=== PATIENT | female | born 1960 | race Caucasian/White ===

== ENCOUNTER 2018-04-21 08:02 | Emergency (ER) | payer BC ==
--- NOTE | 2018-04-21 08:40 | UC ---
Neck Pain HPI - HPI Summary HPI Summary: ONSET YESTERDAY OF LEFT ARM ACHING AND FINGER TINGLING. WORSE WITH CERTAIN POSITIONS AND NECK MOVEMENTS. HAS BEEN DOING A LOT OF LIFTING AND MOVING RECENTLY. NO DISCRETE TRAUMA THAT SHE REMEMBERS. HAS HAD SIMILAR SYMPTOMS INTERMITTENTLY IN THE PAST THAT RESOLVE WITH REST AND IBUPROFEN WHICH IS NOT WORKING SO MUCH THIS TIME. - History of Current Complaint Chief Complaint: UCUpperExtremity Stated Complaint: L ARM NUMBNESS Time Seen by Provider: 04/21/18 08:12 Hx Obtained From: Patient Onset/Duration Of Injury/Symptoms: Days - 1 DAY Mechanism Of Injury: No Known Trauma Onset/Duration: Sudden Onset, Still Present Severity: Moderate Pain Intensity: 6 Pain Scale Used: 0-10 Numeric Location: Discrete At: - LEFT NECK, SHOULDER, ARM Aggravating Factors: Movement Alleviating Factors: Position Associated Signs & Symptoms: Positive: Paresthesia - Allergies/Home Medications Allergies/Adverse Reactions: Allergies Allergy/AdvReac Type Severity Reaction Status Date / Time No Known Allergies Allergy Verified 04/21/18 08:07 Home Medications: Home Medications Ibuprofen TAB* [Motrin TAB* 400 MG] 400 mg PO Q6H PRN 04/21/18 [History Confirmed 04/21/18] PMH/Surg Hx/FS Hx/Imm Hx Previously Healthy: Yes - Surgical History Surgical History: None - Family History Known Family History: Positive: Hypertension - Social History Alcohol Use: Weekly Alcohol Amount: a couple Substance Use Type: None Smoking Status (MU): Never Smoked Tobacco Have You Smoked in the Last Year: No Review Of Systems Constitutional: Positive: Negative Skin: Positive: Negative Respiratory: Positive: Negative Cardiovascular: Positive: Negative Gastrointestinal: Positive: Negative Musculoskeletal: Positive: Arthralgia, Decreased ROM Neurological: Positive: Paresthesia All Other Systems Reviewed And Are Negative: Yes Physical Exam Triage Information Reviewed: Yes Appearance: Well-Appearing, Well-Nourished, Pain Distress - MILD, Other: - PT SITTING WITH LEFT ARM OVER HEAD Vital Signs: Initial Vital Signs Temp 97.5 F 04/21/18 08:08 Pulse 67 04/21/18 08:08 Resp 16 04/21/18 08:08 BP 154/98 04/21/18 08:08 Pulse Ox 98 04/21/18 08:08 Vital Signs Reviewed: Yes Eyes: Positive: Conjunctiva Clear ENT: Positive: Hearing grossly normal Neck: Positive: Supple Respiratory: Positive: No respiratory distress, No accessory muscle use Cardiovascular: Positive: Pulses Normal Abdomen Description: Positive: Soft Musculoskeletal: Positive: No Edema, ROM Limited @ - NECK, Other: - POSITIVE SHOULDER ABDUCTION RELIEF TEST. EQUIVOCAL SPURLING TEST. NOT TENDER OVER SPINE OR SURROUNDING MUSCULATURE. Neurological: Positive: Alert, Other: - NEG TINEL, NEG PHALEN Psychological: Positive: Age Appropriate Behavior Skin: Negative: rashes Diagnostics - EKG Cardiac Rate: Bradycardia - 51 BPM Cardiac Rhythm: Sinus: Normal Ectopy: None ST Segment: Normal Neck Pain Course/Dx - Course Course Of Treatment: ON THE WAY TO X-RAY PATIENT SUDDENLY BECAME PALE AND CLAMMY AND HAD A PRESYNCOPAL EVENT. CLINICALLY SOUNDS LIKE A VASOVAGAL REACTION. EKG WAS OBTAINED AND PATIENT WAS FOUND TO BE BRADYCARDIC IN THE 50S. OVER 30 MINUTES LATER PATIENT WAS STILL BRADYCARDIC IN THE 50S AND PALE. OVERALL NOT FEELING WELL WITH PERSISTENT LEFT ARM DISCOMFORT. HAS NOT EATEN OR HAD MUCH TO DRINK YET TODAY. WILL SEND TO [facility] ED BY AMBULANCE FOR FURTHER EVALUATION AND MANAGEMENT. - Differential Dx/Diagnosis Provider Diagnoses: 1. CERVICAL RADICULOPATHY. 2. SYNCOPE - Physician Notification/Consults Discussed Patient Care With: Jesus Alberto March - TO [facility] ED BY AMBULANCE Time Discussed With Above Provider: 09:30 Instructed by Provider To: MD Will See In ED Discharge - Sign-Out/Discharge Documenting (check all that apply): Patient Departure All imaging exams completed and their final reports reviewed: No Studies - Discharge Plan Condition: Stable Disposition: TRANS HIGHER LVL OF CARE FAC Patient Education Materials: Syncope (ED), Cervical Radiculopathy (ED) Referrals: [facility] [Outside] Rosas Cedillo MD [Medical Doctor] - Additional Instructions: I SUSPECT YOU HAVE IMPINGEMENT OF A CERVICAL SPINAL NERVE RESULTING IN YOUR LEFT ARM SYMPTOMS. WHILE YOU WERE HERE YOU HAD WHAT SOUNDS LIKE A VASOVAGAL REACTION. WITH YOUR PERSISTENT LOW HEART RATE, OVERALL MALAISE AND LEFT ARM DISCOMFORT ED EVALUATION AND MANAGEMENT IS INDICATED. [facility] [address] [place] [address] CALL THE NUMBER BELOW FOR ASSISTANCE IN ESTABLISHING WITH A PCP An additional resource available to assist in finding the appropriate physician for your health care needs is the [facility] ([facility]). You may contact them by calling [phone]. - Billing Disposition and Condition Condition: STABLE Disposition: Trans Higher Lvl of Care Fac
[2018-04-21] MEDS ORDERED: NS 0.9% 1000 ML* 1,000 ML IV SCH (09:30)
[2018-04-21 09:45] VITALS: BP 147/83
== END 2018-04-21 09:45 | disposition short-term general hospital (02) ==
LOC: UCEAST 08:02
DX: M54.12 Radiculopathy, cervical region (principal); R55 Syncope and collapse
CPT/HCPCS: 93005; 96360; 99213; G0463

== ENCOUNTER 2018-04-21 10:03 | Emergency (ER) | payer BC ==
--- NOTE | 2018-04-21 10:18 | ED ---
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 She had gone to Urgent Care for neck and shoulder pain during which she had the episode accompanied by bradycardia and hypotension. She arrives stable and notes L arm pain rated 8/10 in intensity for the last 1 day , dizziness , and mid upper back pain but denies LOC, recent trauma, neck pain, SOB, CP, and abd pain. She took Tylenol at 06:30 this am. 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 Context: Witnessed Associated Head Trauma: No Aggravating Factor(s): Nothing Alleviating Factor(s): Nothing Associated Signs And Symptoms: Negative - LOC , recent trauma, neck pain , SOB, CP , and abd pain, Dizzy - Allergies/Home Medications Allergies/Adverse Reactions: Allergies Allergy/AdvReac Type Severity Reaction Status Date / Time No Known Allergies Allergy Verified 04/21/18 08:07 PMH/Surg Hx/FS Hx/Imm Hx Previously Healthy: Yes Endocrine/Hematology History: Denies: Hx Diabetes Cardiovascular History: Denies: Hx Hypertension - Surgical History Surgery Procedure, Year, and Place: None Infectious Disease History: No Infectious Disease History: Denies: Hx Clostridium Difficile, Hx Hepatitis, Hx Human Immunodeficiency Virus (HIV), Hx of Known/Suspected MRSA, Hx Shingles, Hx Tuberculosis, Hx Known/ Suspected VRE, Hx Known/Suspected VRSA, History Other Infectious Disease, Traveled Outside the in Last 30 Days - Family History Known Family History: Positive: Hypertension - Social History Occupation: Employed Full-time Lives: With Family Alcohol Use: Weekly Alcohol Amount: a couple Substance Use Type: Reports: None Smoking Status (MU): Never Smoked Tobacco Have You Smoked in the Last Year: No Review of Systems Constitutional: Other - Posiive: dizziness ENT: Negative - Neck pain Negative: Chest Pain Negative: Shortness Of Breath Negative: Abdominal Pain Musculoskeletal: Negative, Other - Positive: L arm pain, mid upper back pain Neurological: Negative - LOC Positive: Syncope - Near syncope All Other Systems Reviewed And Are Negative: Yes Physical Exam - Summary Physical Exam Summary: Appearance: Well appearing, no pain distress Skin: warm, dry, reflects adequate perfusion Head/face: normal Eyes: EOMI, POLINA ENT: normal Neck: supple, non-tender Respiratory: CTA, breath sounds present Cardiovascular: RRR, pulses symmetrical Abdomen: non-tender, soft Bowel: present Musculoskeletal: Tenderness over L shoulder , strength/ROM intact Neuro: normal, sensory motor intact, A&Ox3 GCS: 15 Triage Information Reviewed: Yes Vital Signs On Initial Exam: Initial Vitals Temp Pulse Resp BP Pulse Ox 98.6 F 62 20 158/87 99 04/21/18 10:09 04/21/18 10:09 04/21/18 10:09 04/21/18 10:09 04/21/18 10:09 Vital Signs Reviewed: Yes Diagnostics - Vital Signs Vital Signs Temp Pulse Resp BP Pulse Ox 04/21/18 10:09 98.6 F 62 20 158/87 99 - Laboratory Result Diagrams: 04/21/18 10:38 04/21/18 10:38 Lab Statement: Any lab studies that have been ordered have been reviewed, and results considered in the medical decision making process. - Radiology CXR Radiology Interpretation Completed By: Radiologist - IMPRESSION: #. Elevated lung volumes may reflect obstructive lung disease or simply exuberant inspiratory effort for examination. #. No acute cardiopulmonary process evident. The ED physician reviewed this radiology report. - CT Brain CT CT Interpretation Completed By: Radiologist - IMPRESSION: 1. NO EVIDENCE FOR ACUTE INTRACRANIAL ABNORMALITY. 2. FINDINGS SUGGESTIVE OF MILD CHRONIC SMALL VESSEL ISCHEMIC CHANGES. The ED physician reviewed this radiology report. Cervical Spine CT CT Interpretation Completed By: Radiologist - Cervical Spine CT IMPRESSION: MODERATE DEGENERATIVE DISC DISEASE C5-C6 WITH MODERATE RIGHT-SIDED FORAMINAL NARROWING. The ED physician reviewed this radiology report. 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 She had gone to Urgent Care for neck and shoulder pain during which she had the episode accompanied by bradycardia and hypotension. She arrives stable and notes L arm pain rated 8/10 in intensity for the last 1 day, dizziness, and mid upper back pain but denies LOC , recent trauma, neck pain , SOB, CP , and abd pain.. A physical exam revealed tenderness over L shoulder. An EKG reveals bradycardia (57 bpm) and nonspecific ST T changes. A brain Ct reveals no evidence of acute intracranial abnormality but suggests mild chronic small vessel ischemic changes. A CXR reveals no acute cardiopulmonary process evident. A cervical spine CT reveals moderate degenerative dics disease C5-C6 with moderate R sided foraminal narrowing. The patient will be discharged with a final Dx of cervical radiculitis and dizziness. Pt is agreeable with this plan. I advised the pt. to follow up with her PCP in 3 days. Allergies noted. - Diagnoses Differential Diagnosis/HQI/PQRI: Positive: Other - dizziness/radiculopathy/ orthostatic hypotension Provider Diagnoses: Radiculitis, Dizziness Discharge - Sign-Out/Discharge Documenting (check all that apply): Patient Departure - DC - Discharge Plan Condition: Stable Disposition: HOME Prescriptions: Cyclobenzaprine TAB* [Flexeril 10 MG TAB*] 10 mg PO BID PRN #10 tab MDD 2 PRN Reason: Pain Ibuprofen TAB* [Motrin TAB* 600 MG] 600 mg PO Q8H PRN #15 tab MDD 3 PRN Reason: Pain Patient Education Materials: Cervical Strain (ED), Dizziness (ED) Referrals: [facility] [Outside] - 3 Days Additional Instructions: Follow up with PCP in 3 days. Return to ED for any new or worsening symptoms - Billing Disposition and Condition Condition: STABLE Disposition: Home - Attestation Statements Document Initiated by Sonjaibe: Yes Documenting Scribe: Temi Leon Provider For Whom Bree is Documenting (Include Credential): Dr. Paramjit Keenan MD Scribe Attestation: Temi Wiggins , scribed for Dr. Paramjit Keenan MD on 04/21/18 at 1241. Scribe Documentation Reviewed: Yes Provider Attestation: The documentation as recorded by the Temi simon accurately reflects the service I personally performed and the decisions made by me, Dr. Paramjit Keenan MD
[2018-04-21 10:49] LABS: ABS Basophils 0.1 10^3/ul (0-0.2); ABS Eosinophils 0.1 10^3/ul (0-0.6); ABS Lymphocytes 0.9 10^3/ul (1.0-4.8); ABS Monocytes 0.4 10^3/ul (0-0.8); ABS Neutrophils 5.5 10^3/ul (1.5-7.7); ABS Nucleated RBC 0 10^3/ul; Eosinophil % 1.3 % (0-6); Hematocrit 42 % (35-47); Hemoglobin 14.5 g/dl (12.0-16.0); Lymphocyte % 13.1 % (25-47); Mean Corpuscular HGB Conc 35 g/dl (31-36); Mean Corpuscular Hemoglobin 29 pg (27-31); Mean Corpuscular Volume 85 fL (80-97); Mean Platelet Volume 6.5 um3 (7.4-10.4); Nucleated Red Blood Cells % 0; Platelet Count 269 10^3/ul (150-450); Red Blood Count 4.92 10^6/ul (4.00-5.40); Red Cell Distribution Width 14 % (10.5-15); White Blood Count 6.9 10^3/ul (3.5-10.8)
[2018-04-21 11:04] LABS: INR 0.94 (0.77-1.02)
[2018-04-21 11:12] LABS: EGFR Non-African American 75.9 (>60)
--- NOTE | 2018-04-21 11:30 | RAD ---
INDICATION: Syncope. COMPARISON: There are no relevant prior studies available for comparison. TECHNIQUE: Contiguous axial sections of the brain were obtained from the skull base to the vertex without contrast. FINDINGS: The ventricles, cisterns and sulci are within normal limits. There are small areas of decreased density in the subcortical and periventricular white matter suggestive of mild chronic small vessel ischemic changes. There is no evidence for hemorrhage. No significant focal osseous abnormality is seen. The visualized portion of the paranasal sinuses and mastoid air cells appear clear. IMPRESSION: 1. NO EVIDENCE FOR ACUTE INTRACRANIAL ABNORMALITY. 2. FINDINGS SUGGESTIVE OF MILD CHRONIC SMALL VESSEL ISCHEMIC CHANGES.
--- NOTE | 2018-04-21 11:38 | RAD ---
INDICATION: Left neck and shoulder pain. Acute upon chronic COMPARISON: None TECHNIQUE: Noncontrast axial source images was performed from the skull base to the thoracic inlet. Coronal and and sagittal reformatted images were generated. FINDINGS: Vertebrae: There is no fracture or acute focal bony lesion. There is endplate sclerosis, minor posterior spondylitic ridge formation. Anterior vertebral spurring, and uncinate process spurring at C5-C6. Alignment: The craniocervical junction appears normal. The cervical vertebrae are normally aligned. Central Canal: There are no significant CT abnormalities of the central canal. There is moderate right-sided foraminal narrowing at C5-C6. This is not the symptomatic side, however. MR imaging is a more sensitive method to evaluate the canal and foramina. Intervertebral disc spaces: Moderate narrowing C5-C6. The remaining disc spaces are well-maintained. Brain: The visualized brain appears unremarkable. Soft tissues: The visualized soft tissue elements of the neck are unremarkable. The prevertebral soft tissues appear normal. The lung apices are clear. IMPRESSION: MODERATE DEGENERATIVE DISC DISEASE C5-C6 WITH MODERATE RIGHT-SIDED FORAMINAL NARROWING.
--- NOTE | 2018-04-21 11:46 | RAD ---
Indication: Chest pain and LEFT arm numbness. 24 hours duration. Comparison: No relevant prior exams available on the [facility] PACS for comparison. Technique: Upright AP 1100 hours Report: Elevated lung volumes. No focal pulmonary lesion, compelling alveolar consolidation, pleural effusion, pneumothorax. The heart, pulmonary vasculature, and mediastinal contours are unremarkable. Unremarkable soft tissue contours and osseous structures. IMPRESSION: #. Elevated lung volumes may reflect obstructive lung disease or simply exuberant inspiratory effort for examination. #. No acute cardiopulmonary process evident.
[2018-04-21 12:27] VITALS: BP 148/90
[2018-04-21 12:39] LABS: Urine Appearance Cloudy; Urine Blood 1+ (Negative); Urine Color Yellow; Urine Ketones Negative (Negative); Urine Protein Negative (Negative); Urine Red Blood Cell 3+(>10/hpf) (Absent); Urine Specific Gravity 1.009 (1.010-1.030); Urine Urobilinogen Negative (Negative); Urine White Blood Cell 2+(11-20/hpf) (Absent)
== END 2018-04-21 12:27 | disposition home or self-care (01) ==
LOC: ED 10:03
DX: M54.10 Radiculopathy, site unspecified (principal); R42 Dizziness and giddiness; R55 Syncope and collapse; M54.9 Dorsalgia, unspecified
CPT/HCPCS: 36415; 70450; 71045; 72125; 80053; 81003; 81015; 84484; 85025; 85610; 85730; 87077; 87086; 93005; 99283